=== PATIENT | male | born 1955 | race Caucasian/White ===

== ENCOUNTER 2019-01-16 06:23 | Day surgery (SDC) | payer OTHER ==
[2019-01-16] VITALS (9 sets, daily range): BP systolic 80–111; BP diastolic 50–74
[~2019-01-16] VITALS: Ht 170.2 cm; Wt 68.0 kg
[~2019-01-16 06:23] MED LIST: ASPI-529 PO; ATOR10TA70 PO; FISH OIL PO; METO-395 PO; MULTIVIT PO
[2019-01-16] MEDS ORDERED: LIDOcaine 1% (10mg/ml) 2ml vial ONE (06:49)
[2019-01-16] MEDS ORDERED: famotidine 20mg tablet PO ONE (07:15)
[2019-01-16] MEDS ORDERED: cefazolin/dext.iso 2gm/100 ML IV ONE (07:15)
[2019-01-16] MEDS ORDERED: ringers solution, lacted 1,000 ML IV SCH ×2 (07:15→10:09)
[2019-01-16] MEDS ORDERED: BUPIVAcaine/PF 2.5 mg/ml (0.25%) 30ml vial ONE (07:23)
[2019-01-16] MEDS ORDERED: bacitracin 15gm ointment TP ONE (07:23)
[2019-01-16] MEDS ORDERED: ceFAZolin 1000mg inj ONE (07:23)
[2019-01-16 07:42] LABS: BASOPHILS # (AUTO) 0.1 X10'3 (0-0.2); BASOPHILS % (AUTO) 1.2 % (0-1); EOSINOPHILS # (AUTO) 0.1 X10'3 (0-0.9); EOSINOPHILS % (AUTO) 1.3 % (0-6); LYMPHOCYTES # (AUTO) 1.3 X10'3 (1.1-4.8); LYMPHOCYTES % (AUTO) 22.6 % (21-51); MEAN CORPUSCULAR HEMOGLOBIN 31.3 PG (27.0-31.0); MEAN CORPUSCULAR HGB CONC 34.3 g/dL (33.0-36.5); MEAN CORPUSCULAR VOLUME 91.4 FL (78-98); MEAN PLATELET VOLUME 8.7 FL (7.4-10.4); MONOCYTES # (AUTO) 0.5 X10'3 (0-0.9); MONOCYTES % (AUTO) 8.3 % (2-12); NEUTROPHILS # (AUTO) 3.8 X10'3 (1.8-7.7); NEUTROPHILS % (AUTO) 66.6 % (42-75); PRE OP HEMATOCRIT 50.8 % (42.0-52.0); PRE OP HEMOGLOBIN 17.4 g/dL (14.0-17.9); PRE OP PLATELET COUNT 234 X10'3 (140-440); RED BLOOD COUNT 5.55 X10'6 (4.70-6.10)
[2019-01-16 07:54] LABS: ALBUMIN 3.5 G/DL (3.4-5.0); ALBUMIN/GLOBULIN RATIO 1.3 (1.1-1.5); ALKALINE PHOSPHATASE 53 IU/L (46-116); BLOOD UREA NITROGEN 21 MG/DL (7-18); BUN/CREATININE RATIO 16.8 (5.4-32.0); CALCIUM 9.2 MG/DL (8.5-10.1); CHLORIDE 106 MMOL/L (99-107); CREATININE 1.25 MG/DL (0.60-1.10); PRE OP ALT 48 U/L (30-65); PRE OP ANION GAP 6 (8-16); PRE OP AST 50 U/L (10-37); PRE OP BILIRUB, TOTAL 1.1 MG/DL (0.0-1.0); PRE OP GLUCOSE 86 MG/DL (70-104); PRE OP POTASSIUM 3.7 MMOL/L (3.4-5.1); PRE OP SODIUM 141 MMOL/L (135-145); TOTAL CARBON DIOXIDE 28.6 MMOL/L (24-32); TOTAL PROTEIN 6.3 G/DL (6.4-8.2); eGFR 58 ML/MIN
[2019-01-16] MEDS ORDERED: propofol inj 20 ML IV ONE (10:03)
[2019-01-16] MEDS ORDERED: fentaNYL/PF 50MCG/1 ML 2ML syringe ONE (10:03)
[2019-01-16] MEDS ORDERED: midazolam 2 mg/2 ml injection ONE (10:03)
[2019-01-16] MEDS ORDERED: morphine 4 MG/ML inj SYRINge IV PRN ×2 (10:10)
[2019-01-16] MEDS ORDERED: ondansetron/PF 4mg/2ml inj IV PRN (10:10)
[2019-01-16] MEDS ORDERED: meperidine/PF 25mg/ml syringe IV PRN ×3 (10:10)
[2019-01-16] MEDS ORDERED: proCHLORperazine 10 MG/2 ml inj IV PRN (10:10)
[2019-01-16] MEDS ORDERED: sevoflurane 250ml liquid IH ONE (10:16)
--- NOTE | 2019-01-16 11:00 | NUR ---
Received from OR via , accompanied by Anesthesiologist DR RICKETTS and report given by Anesthesiolgist. PATIENT WAKING UP, DENIES PAIN, V/S WNL, CSM INTACT, 20G RUE, SCD ON, DRESSING TO ABDOMEN CDI
--- NOTE | 2019-01-16 12:00 | NUR ---
PATIENT A&OX4, DENIES PAIN, V/S WNL, CSM INTACT, 20G RUE D/C, SCD OFF, DRESSING TO ABDOMEN CDI. I HAVE REVIEWED D/C INSTRUCTIONS WITH PATIENT AND FAMILY AND THEY HAVE VERBALIZED UNDERSTANDING. PATIENT D/C HOME WITH ALL BELONGINGS.
== END 2019-01-16 12:00 | disposition home or self-care (01) ==
LOC: PAS 06:23
PROVIDERS: ATTEND Surgery
DX: L02.216 Cutaneous abscess of umbilicus (principal); J45.909 Unspecified asthma, uncomplicated; M19.90 Unspecified osteoarthritis, unspecified site; H40.9 Unspecified glaucoma; Z79.899 Other long term (current) drug therapy; Z79.82 Long term (current) use of aspirin; Z80.9 Family history of malignant neoplasm, unspecified; Z95.1 Presence of aortocoronary bypass graft; Z72.89 Other problems related to lifestyle; Z98.49 Cataract extraction status, unspecified eye
CPT/HCPCS: 36415; 49250; 80053; 85025; 93005; J0690; J2001; J2250; J2704; J3010; J3490; J7120; A7000